=== PATIENT | male | born 1965 | race Caucasian/White ===

== ENCOUNTER 2019-11-09 13:13 | Emergency (ER) | payer OTHER, SELFPAY ==
--- NOTE | 2019-11-09 13:20 | ED.BACK ---
HPI - Back Pain/Injury General Chief Complaint: Back Pain/Injury Stated Complaint: lower back pain Time Seen by Provider: 11/09/19 13:43 Source: patient and RN notes reviewed Mode of arrival: ambulatory Limitations: no limitations History of Present Illness HPI Narrative: 54-year-old male presents with concern for right low back pain. Reports strenuous work prior to the back pain. Reports in the 90s he had 3 surgeries for disc removal and always has a low level of back pain. Denies any direct trauma or injury. Reports a spasming feeling. Reports using heating pad with some relief and taking ibuprofen. Denies any loss of bowel or bladder function, denies perianal anesthesia, denies fever, denies abdominal pain or weakness in any extremity. MD elicited complaint: back pain Related Data Allergies Allergy/AdvReac Type Severity Reaction Status Date / Time No Known Allergies Allergy Verified 11/09/19 13:28 Review of Systems Review of Systems: Narrative: CONSTITUTIONAL: Denies malaise, chills, sweats, or fever. CARDIOVASCULAR: Denies chest pain, palpitations, or edema. RESPIRATORY: Denies cough or dyspnea. GASTROINTESTINAL: Denies abdominal pain, nausea, vomiting, diarrhea GENITOURINARY: Denies dysuria or hematuria. SKIN: Denies bruising, redness MUSCULOSKELETAL: Reports right low back pain. Denies joint pain, or myalgia. NEUROLOGIC: Denies numbness, weakness, or headache. All systems reviewed & are unremarkable except as noted in HPI and below PMFSH Comments At time of signature, agree with nursing past medical, surgical, social and family history. There is no relevant family history pertinent to the presenting complaint Exam Narrative: Exam Narrative: GENERAL: Well-appearing, well-nourished, and in no acute distress. HEAD: Normocephalic, atraumatic. EYES: PERRLA and EOMI. NECK: Supple. No lymphadenopathy. CHEST: Clear to auscultation. No respiratory distress. HEART: Regular rate and rhythm. Distal pulses palpable and equal, cap refill <3 seconds ABDOMEN: Soft, nontender, nondistended, normal active bowel sounds, no palpable or pulsatile masses. No CVA tenderness MUSCULOSKELETAL: Normal range of motion and strength in all extremities; 5/5 strength with hip flexion and extension, dorsiflexion and extension, knee flexion and extension, plantar flexion and extension. Normal sensation in dermatomal distributions with sensitivity to light touch and pain. No midline back tenderness to palpation. No paraspinal tenderness. Transfers from lying to sitting to standing. SKIN: Warm, dry, no rash. No ecchymosis, erythema, open wounds to back. NEURO: No focal deficits. Alert and oriented x3. Reflexes intact. Normal gait. PSYCH: Normal mood and affect Course Course Emergency Course: Patient is aware of diagnosis, understands and agrees to treatment plan. Anticipatory guidance given. Patient agrees to follow-up as directed and is aware of reasons to seek care at the emergency department. Portions of this record may have been created with voice recognition software Vital Signs Vital signs: Vital Signs Temperature 98.1 F 11/09/19 13:25 Pulse Rate 68 11/09/19 13:25 Respiratory Rate 14 11/09/19 13:25 Blood Pressure 148/97 H 11/09/19 13:25 Pulse Oximetry 99 11/09/19 13:25 Temperature 98.1 F 11/09/19 13:25 Pulse Rate 68 11/09/19 13:25 Respiratory Rate 14 11/09/19 13:25 Blood Pressure 148/97 H 11/09/19 13:25 Pulse Oximetry 99 11/09/19 13:25 Reviewed. MDM - Back Pain/Injury MDM Narrative Medical decision making narrative: No risk factors or findings concerning for epidural abscess, diskitis, vertebral osteomyelitis, cord compression, cauda equina, vertebral fracture or bone malignancy, AAA, or pyelonephritis. Patient instructed to consider further imaging and workup through their primary care physician as an outpatient if symptoms persist. Critical Care Time Critical Care Time Critical Care Time: No
[2019-11-09 13:25] VITALS: BP 148/97; PULSE 68; RESP 14; TEMP 36.7; O2SAT 99
== END 2019-11-09 13:57 | disposition home or self-care (01) ==
PROVIDERS: Emergency Provider Nurse Practitioner
DX: M54.5 Low back pain (principal)
CPT/HCPCS: 99213; G0463

== ENCOUNTER 2020-01-05 11:53 | Emergency (ER) | payer OTHER, SELFPAY ==
[2020-01-05 12:14] VITALS: BP 144/82; PULSE 62; RESP 18; TEMP 36.6; O2SAT 99
--- NOTE | 2020-01-05 12:19 | ED.BACK ---
HPI - Back Pain/Injury General Chief Complaint: Back Pain/Injury Stated Complaint: back pain Time Seen by Provider: 01/05/20 12:19 Source: patient and RN notes reviewed History of Present Illness HPI Narrative: Patient is a 54-year-old male who presents the urgent care with complaints of back pain for the last 3 to 4 days. Patient states that he does have chronic back pain with a history of 3 surgeries. Patient states that he has been taking the typical ibuprofen without any relief. States that over the weekend that he was lifting heavy furniture and believes that is why it started on Friday. Patient denies of any urinary symptoms. Denies of any radiation of pain. No other acute complaints. No acute distress noted. Patient aware of the plan of care. Some parts of this dictation were generated by voice recognition software and may contain typographical and/or grammatical inaccuracies. Related Data Allergies Allergy/AdvReac Type Severity Reaction Status Date / Time No Known Allergies Allergy Verified 11/09/19 13:28 Review of Systems Review of Systems: Narrative: CONSTITUTIONAL: Denies fever, chills, or sweats. EYES: Denies visual changes, redness, or discharge. ENT: Denies rhinorrhea, congestion, sore throat, or otalgia. CARDIOVASCULAR: Denies chest pain, palpitations, or edema. RESPIRATORY: Denies cough or dyspnea. GASTROINTESTINAL: Denies abdominal pain, nausea, vomiting, or diarrhea. GENITOURINARY: Denies dysuria or hematuria. SKIN: Denies rash or itching. MUSCULOSKELETAL: Reports of bilateral lower back pain, worse on the right NEUROLOGIC: Denies headache, numbness, or weakness. PSYCHIATRIC: Denies anxiety or depression. All other systems reviewed are negative, except as documented in HPI. PMFSH Comments At the time of my signature, I reviewed and agree with the nursing past medical, surgical, social, and family history. There is no relevant family history pertinent to the patient complaint. Exam Narrative: Exam Narrative: GENERAL: This is a well-nourished, well-developed patient, in no apparent distress. HEAD: normocephalic, atraumatic. EYES: PERRL. Sclera clear/white. Vision is grossly intact. EARS: External ears normal NOSE: External nose normal with no obvious nasal discharge, nares without redness, no rhinorrhea. THROAT: Mucous membranes moist NECK: Neck supple SKIN: warm, intact with no suspicious lesions or rash, good texture and turgor. NEURO: awake, alert, and oriented to person, place and time. There were no obvious focal neurologic abnormalities. EXTREMITIES: No clubbing, cyanosis, or edema. No joint tenderness, effusion, or edema noted. No calf tenderness. Negative Homans sign bilaterally. BACK: Mild diffuse lumbar tenderness, more notable on the right without CVA tenderness; negative SLE Course Vital Signs Vital signs: Vital Signs Temperature 98 F 01/05/20 12:14 Pulse Rate 62 01/05/20 12:14 Respiratory Rate 18 01/05/20 12:14 Blood Pressure 144/82 H 01/05/20 12:14 Pulse Oximetry 99 01/05/20 12:14 Temperature 98 F 01/05/20 12:14 Pulse Rate 62 01/05/20 12:14 Respiratory Rate 18 01/05/20 12:14 Blood Pressure 144/82 H 01/05/20 12:14 Pulse Oximetry 99 01/05/20 12:14 Reviewed-patient is informed that they may have pre-hypertension or hypertension based on a blood pressure reading in the department. I recommend the patient call the primary care provider listed on their discharge instructions or a physician of their choice this week to arrange follow-up for further evaluation of possible pre-hypertension or hypertension. MDM - Back Pain/Injury MDM Narrative Medical decision making narrative: Advised the patient to complete steroid regimen as prescribed. Use ibuprofen as needed for pain. Make sure to eat and drink with the medication. Use Flexeril at bedtime for muscle spasms. Do not drive or operate heavy machinery while on the medication due to drowsiness. Continue to use ic
== END 2020-01-05 12:35 | disposition home or self-care (01) ==
PROVIDERS: Emergency Provider Nurse Practitioner Family
DX: M54.5 Low back pain (principal); G89.29 Other chronic pain
CPT/HCPCS: 99213; G0463

== ENCOUNTER 2020-11-14 10:48 | Emergency (ER) | payer OTHER, SELFPAY ==
[2020-11-14 10:56] VITALS: BP 116/79; PULSE 95; RESP 20; TEMP 37.1; O2SAT 100
--- NOTE | 2020-11-14 11:17 | ED.GENADULT ---
HPI - General Adult General Chief complaint: Abdominal Pain Stated complaint: Abdominal pain Time Seen by Provider: 11/14/20 11:17 Source: patient and family History of Present Illness HPI narrative: patient is here for a work note. patient missed work yesterday for one episode of diarrhea in the middle of the night. no abdominal pain no nausea no vomiting symptoms have resolved. Patient denies any other symptoms. Patient thinks his symptoms were from overeating over the weekend too much [employer] fast and fried foods Related Data Allergies Allergy/AdvReac Type Severity Reaction Status Date / Time No Known Allergies Allergy Verified 11/09/19 13:28 Review of Systems Review of Systems: CONSTITUTIONAL: Denies fever, chills, or sweats. EYES: Denies visual changes, redness, or discharge. ENT: Denies rhinorrhea, congestion, sore throat, or otalgia. CARDIOVASCULAR: Denies chest pain, palpitations, or edema. RESPIRATORY: Denies cough or dyspnea. GASTROINTESTINAL: Denies abdominal pain, nausea, vomiting, or diarrhea. GENITOURINARY: Denies dysuria or hematuria. SKIN: Denies rash or itching. MUSCULOSKELETAL: Denies back pain, joint pain, or myalgia. NEUROLOGIC: Denies headache, numbness, or weakness. PSYCHIATRIC: Denies anxiety or depression. [facility] Social History Social History Gender identity (if verbalized by the patient): Male Comments At time of signature, agree with nursing past medical, surgical, social and family history. There is no relevant family history pertinent to the presenting complaint Exam Narrative: GENERAL: Well-appearing, well-nourished, and in no acute distress. HEAD: Normocephalic, atraumatic. EYES: PERRLA and EOMI. ENT: Nares clear, no rhinorrhea or epistaxis. Mucous membranes moist. NECK: Supple. CHEST: Clear to auscultation. No respiratory distress. HEART: Regular rate and rhythm. No murmur heard. Normal peripheral pulses. ABDOMEN: Soft, nontender, nondistended, normal active bowel sounds. EXTREMITIES: Normal range of motion. No edema. SKIN: Warm, dry, no rash. NEURO: No focal deficits. Alert and oriented x3. Karla Coma Scale Eye Opening: Spontaneous 4 Karla Coma Scale Motor: Obeys Commands 6 [place] Coma Scale Verbal: Oriented 5 Karla Coma Scale Total 15 Course Vital Signs Vital signs: Vital Signs Temperature 37.1 C 11/14/20 10:56 Pulse Rate 95 11/14/20 10:56 Respiratory Rate 20 11/14/20 10:56 Blood Pressure 116/79 11/14/20 10:56 Pulse Oximetry 100 11/14/20 10:56 Temperature 37.1 C 11/14/20 10:56 Pulse Rate 95 11/14/20 10:56 Respiratory Rate 20 11/14/20 10:56 Blood Pressure 116/79 11/14/20 10:56 Pulse Oximetry 100 11/14/20 10:56 Critical dx considered and discussed with pt. Educated patient on red flag s/s and to go to ED if s/s occur. Discussed with pt when to return to [facility] or primary care provider. Pt gave verbal undertstanding, all questions were answered, and pt was agreeable to plan Regarding diagnosis, Regarding diagnostic results, Regarding treatment plan, Regarding prescription, Patient indicated understanding of instructions. Critical dx considered and discussed with pt. Educated patient on red flag s/s and to go to ED if s/s occur. Discussed with pt when to return to [facility] or primary care provider. Pt gave verbal undertstanding, all questions were answered, and pt was agreeable to plan.. Medical Decision Making Differential Diagnosis Differential Diagnosis: Work note, will visit, nausea, vomiting Vital Signs Vital Signs: Vital Signs Temperature 37.1 C 11/14/20 10:56 Pulse Rate 95 11/14/20 10:56 Respiratory Rate 11/14/20 10:56 Blood Pressure 116/79 11/14/20 10:56 Pulse Oximetry 100 11/14/20 10:56 Temperature 37.1 C 11/14/20 10:56 Pulse Rate 95 11/14/20 10:56 Respiratory Rate 20 11/14/20 10:56 Blood Pressure 116/79 11/14/20 10:56 Pulse Oximetry 100 11/14/20 10:56 C
== END 2020-11-14 11:31 | disposition home or self-care (01) ==
PROVIDERS: Emergency Provider Nurse Practitioner Family
DX: R10.9 Unspecified abdominal pain (principal)
CPT/HCPCS: 99211; G0463

== ENCOUNTER 2021-02-08 13:40 | Emergency (ER) | payer OTHER, SELFPAY ==
--- NOTE | 2021-02-08 13:45 | ED.ABDPAIN ---
HPI - Abdominal Pain General Chief Complaint: Abdominal Pain Stated Complaint: Abdominal Pain Time Seen by Provider: 02/08/21 13:45 Source: patient and RN notes reviewed History of Present Illness HPI narrative: Patient is a 56-year-old male who presents the urgent care with complaints of intermittent abdominal pains. Patient states that he left work on Friday due to abdominal pain and then did not go to work today due to the pain. Patient states he feels much better but does need a work excuse . Patient states he started to feel better after making a bowel movement this morning. Patient states it was a normal bowel movement and denies of any nausea, vomiting, diarrhea or abdominal pain. Denies of any fever. Patient denies any urinary symptoms. Patient believes that his pain is due to his crazy eating habits and late night eating . Patient states that he has long hours at work and tends to overeat prior to bedtime. Patient has not taken anything [id number] for his symptoms. No other acute complaints. No acute distress noted. Patient aware of the plan of care. Some parts of this dictation were generated by voice recognition software and may contain typographical and/or grammatical inaccuracies. Related Data Home Medications Medication Instructions Recorded Confirmed No Home Medications 02/08/21 02/08/21 Allergies Allergy/AdvReac Type Severity Reaction Status Date / Time No Known Allergies Allergy Verified 02/08/21 13:51 Review of Systems Review of Systems: CONSTITUTIONAL: Denies fever, chills, or sweats. EYES: Denies visual changes, redness, or discharge. ENT: Denies rhinorrhea, congestion, sore throat, or otalgia. CARDIOVASCULAR: Denies chest pain, palpitations, or edema. RESPIRATORY: Denies cough or dyspnea. GASTROINTESTINAL: Reports of intermittent abdominal pain without nausea, vomiting or diarrhea GENITOURINARY: Denies dysuria or hematuria. SKIN: Denies rash or itching. MUSCULOSKELETAL: Denies back pain, joint pain, or myalgia. NEUROLOGIC: Denies headache, numbness, or weakness. All other systems reviewed are negative, except as documented in HPI. [facility] Social History Social History Gender identity (if verbalized by the patient): Male Comments At the time of my signature, I reviewed and agree with the nursing past medical, surgical, social, and family history. There is no relevant family history pertinent to the patient complaint. Exam Narrative: GENERAL: This is a well-nourished, well-developed patient, in no apparent distress. HEAD: normocephalic, atraumatic. EYES: PERRL. Sclera clear/white. Vision is grossly intact. EARS: External ears normal NOSE: External nose normal with no obvious nasal discharge, nares without redness, no rhinorrhea. THROAT: Mucous membranes moist NECK: Neck supple CARDIOVASCULAR: Regular rate and rhythm without murmurs, gallops, or rubs. RESPIRATORY: Clear to auscultation. Breath sounds equal bilaterally. No wheezes, rales, or rhonchi. GASTROINTESTINAL: Abdomen soft, very mild diffuse lower abdominal tenderness, nondistended. Bowel sounds are active. No hepato-splenomegaly, or palpable masses. No guarding. SKIN: warm, intact with no suspicious lesions or rash, good texture and turgor. NEURO: awake, alert, and oriented to person, place and time. There were no obvious focal neurologic abnormalities. EXTREMITIES: No clubbing, cyanosis, or edema. BACK: Negative CVA tenderness Course Vital Signs Vital signs: Vital Signs Temperature 98.0 F 02/08/21 13:46 Pulse Rate 90 02/08/21 13:46 Respiratory Rate 16 02/08/21 13:46 Blood Pressure 156/93 H 02/08/21 13:46 Pulse Oximetry 100 02/08/21 13:46 Temperature 98.0 F 02/08/21 13:46 Pulse Rate 90 02/08/21 13:46 Respiratory Rate 16 02/08/21 13:46 Blood Pressure 156/93 H 02/08/21 13:46 Pulse Oximetry 100 02/08/21 13:46 Reviewed-patient is informed that they may have pre-hypertension or hype
[2021-02-08 13:46] VITALS: BP 156/93; PULSE 90; RESP 16; TEMP 36.7; O2SAT 100
== END 2021-02-08 14:23 | disposition home or self-care (01) ==
PROVIDERS: Emergency Provider Nurse Practitioner Family
DX: R10.30 Lower abdominal pain, unspecified (principal)
CPT/HCPCS: 99211; G0463

== ENCOUNTER 2021-02-16 09:46 | Emergency (ER) | payer OTHER, SELFPAY ==
[2021-02-16 11:01] VITALS: BP 125/88; PULSE 80; RESP 16; TEMP 37.2; O2SAT 99
--- NOTE | 2021-02-16 11:28 | ED.DENTAL ---
HPI - Dental/Oral General Chief complaint: Dental/Oral Stated complaint: tooth pain Time Seen by Provider: 02/16/21 11:22 Source: patient and RN notes reviewed Mode of arrival: ambulatory Limitations: no limitations History of Present Illness HPI Narrative: Patient presents today complaining of right upper tooth that has been loose for the past couple of weeks that is now been painful since yesterday. Currently rates his pain 10/10 and has been taking Tylenol without relief. Denies fever, shortness of breath, or difficulty swallowing. No recent antibiotic use. He and his called approximately 30 dentis yesterday to try to get an appointment. He does have a couple of appointments made in the next couple of weeks that he will try to get into be seen. MD Complaint: tooth pain Related Data Allergies Allergy/AdvReac Type Severity Reaction Status Date / Time No Known Allergies Allergy Verified 02/08/21 13:51 Review of Systems Review of Systems: CONSTITUTIONAL: Denies body aches, fever, chills, or sweats. EYES: Denies visual changes, redness, or discharge. ENT: Denies rhinorrhea, congestion, sore throat, or otalgia.+ Tooth pain CARDIOVASCULAR: Denies chest pain, palpitations, or edema. RESPIRATORY: Denies cough or dyspnea. GASTROINTESTINAL: Denies abdominal pain, nausea, vomiting, or diarrhea. GENITOURINARY: Denies dysuria or hematuria. SKIN: Denies rash, itching, or wounds. MUSCULOSKELETAL: Denies back pain, joint pain, or myalgia. NEUROLOGIC: Denies headache, numbness, tingling, or weakness. PSYCH: Denies depression or anxiety. PMFSH Social History Social History Gender identity (if verbalized by the patient): Male Comments At time of signature, I have reviewed and agree with nursing past medical, surgical, social and family history unless otherwise noted. Please see nursing chart for further information. There is no relevant family history pertinent to the presenting complaint Exam Narrative: GENERAL: Well-appearing, well-nourished, and in no acute distress. HEAD: Normocephalic, atraumatic. EYES: EOMI. No redness or drainage. Conjunctivae normal. ENT: Mucous membranes pink and moist. Throat normal. Uvula midline. Tooth #7 is brown in color and loose. The surrounding gingiva is erythematous and edematous. No obvious periapical abscess. NECK: Normal AROM. CHEST: No respiratory distress. EXTREMITIES: Normal range of motion. No edema. SKIN: Warm, dry, no rash. Capillary refill normal. Normal skin turgor. NEURO: No focal deficits. Alert and oriented x3. Gait steady. PSYCH: Normal affect. No signs of depression or anxiety. Course Vital Signs Vital signs: Vital Signs Temperature 99 F 02/16/21 11:01 Pulse Rate 80 02/16/21 11:01 Respiratory Rate 16 02/16/21 11:01 Blood Pressure 125/88 02/16/21 11:01 Pulse Oximetry 99 02/16/21 11:01 Temperature 99 F 02/16/21 11:01 Pulse Rate 80 02/16/21 11:01 Respiratory Rate 16 02/16/21 11:01 Blood Pressure 125/88 02/16/21 11:01 Pulse Oximetry 99 02/16/21 11:01 Reviewed. Pt has been instructed to follow up with his PCP regarding his elevated blood pressure today. MDM - Dental/Oral Differential Diagnosis Differential diagnosis: Likely gingival abscess, dental caries, toothache, dental abscess and fracture of tooth Critical Care Time Critical Care Time Critical Care Time: No Discharge Plan Discharge Clinical Impression: Dental abscess Patient Disposition: Home, Self-Care Condition: Stable Instructions: Antibiotic Form, Dental Abscess (ED) Additional Instructions: Please take the Augmentin as prescribed until gone. Tramadol for severe pain. Take Tylenol for mild pain. Follow-up with a dentist as soon as possible. Your blood pressure was elevated above 120/80 today at Urgent Care. This puts you above the threshold for follow up. Please schedule a follo
== END 2021-02-16 11:41 | disposition home or self-care (01) ==
PROVIDERS: Emergency Provider Nurse Practitioner
DX: K02.9 Dental caries, unspecified (principal)
CPT/HCPCS: 99213; G0463

== ENCOUNTER 2021-09-10 14:18 | Emergency (ER) | payer OTHER, SELFPAY ==
[2021-09-10 14:30] VITALS: BP 190/98; PULSE 60; RESP 20; TEMP 37.1; O2SAT 98
--- NOTE | 2021-09-10 15:00 | ED.GENADULT ---
HPI - General Adult General Chief complaint: Nausea/Vomiting/Diarrhea Stated complaint: weak and sick ([place]) Time Seen by Provider: 09/10/21 15:00 Source: patient and RN notes reviewed Mode of arrival: ambulatory Limitations: no limitations History of Present Illness HPI narrative: 56-year-old male presents with concern for general malaise, nausea and vomiting that started on Friday. Reports he got a sunburn on Friday. He reports he has vomited twice today, however he has since eaten a peanut butter jelly sandwich without vomiting. Reports he has been staying hydrated drinking Gatorade mixed with water. He denies fever. Reports body aches and rhinorrhea. He denies cough, shortness of breath, diarrhea. He denies [id number] intervention. He reports he needs to find a primary care doctor to address his hypertension. MD complaint: Nausea and vomiting Related Data Allergies Allergy/AdvReac Type Severity Reaction Status Date / Time No Known Allergies Allergy Verified 09/10/21 14:36 Review of Systems Review of Systems: CONSTITUTIONAL: Reports malaise, chills, fatigue Denies sweats, or fever. ENT: Reports rhinorrhea. Denies congestion, sinus pain, otalgia or sore throat. CARDIOVASCULAR: Denies chest pain, palpitations, or edema. RESPIRATORY: Denies cough or dyspnea. GASTROINTESTINAL: Denies abdominal pain, diarrhea, bloody, or mucous stools. Reports nausea and vomiting GENITOURINARY: Denies dysuria or hematuria. MUSCULOSKELETAL: Reports myalgia. NEUROLOGIC: Denies headache. All systems reviewed & are unremarkable except as noted in HPI and below [facility] Social History Social History Gender identity (if verbalized by the patient): Male Comments At time of signature, agree with nursing past medical, surgical, social and family history. There is no relevant family history pertinent to the presenting complaint Exam Narrative: GENERAL: Nontoxic-appearing and in no acute distress. HEAD: Normocephalic, atraumatic. EYES: PERRLA, conjunctivae clear, and EOMI. ENT: Nares clear. Mucous membranes moist. Oropharynx without edema, erythema, or lesions. Tonsils not enlarged and without exudate. NECK: Supple. No lymphadenopathy CHEST: Speaks in full sentences. No respiratory distress. HEART: Regular rate and rhythm. ABDOMEN: Soft, flat, nondistended. No guarding, rebound tenderness, or rigid. No pulsatilla masses. Bowel sounds present in all four quadrants. No organomegaly. Negative Ng?s sign. No periumbilical tenderness. No Supra public tenderness or distension. Good femoral pulses bilaterally. No hernia noted. No scars or surface trauma. SKIN: Warm, dry, no rash. NEURO: Alert and oriented x3. PSYCH: Normal mood and affect Course Course Emergency Course: Patient is aware of diagnosis, understands and agrees to treatment plan. Anticipatory guidance given. Patient agrees to follow-up as directed and is aware of reasons to seek care at the emergency department. Portions of this record may have been created with voice recognition software Level of Care: Express Care Visit Vital Signs Vital signs: Vital Signs Temperature 98.7 F 09/10/21 14:30 Pulse Rate 60 09/10/21 14:30 Respiratory Rate 20 09/10/21 14:30 Blood Pressure 190/98 H 09/10/21 14:30 Pulse Oximetry 98 09/10/21 14:30 Oxygen Delivery Room Air 09/10/21 14:30 Temperature 98.7 F 09/10/21 14:30 Pulse Rate 60 09/10/21 14:30 Respiratory Rate 20 09/10/21 14:30 Blood Pressure 190/98 H 09/10/21 14:30 Pulse Oximetry 98 09/10/21 14:30 Oxygen Delivery Room Air 09/10/21 14:30 Reviewed. Medical Decision Making MDM Narrative Medical decision making narrative: Exam findings show no acute concerns or changes; patient is non-toxic appearing and is in no distress. Patient is appropriate for outpatient treatment and follow-up. Vital Signs Vital Signs: Vital Sign
== END 2021-09-10 15:18 | disposition home or self-care (01) ==
PROVIDERS: Emergency Provider Nurse Practitioner
DX: B34.9 Viral infection, unspecified (principal)
CPT/HCPCS: 99213; G0463

== ENCOUNTER 2024-07-14 14:53 | Emergency (ER) | payer OTHER, SELFPAY ==
[2024-07-14 15:03] VITALS: BP 120/76; PULSE 75; RESP 16; TEMP 36.8; O2SAT 98
--- NOTE | 2024-07-14 15:42 | ED.EAR ---
HPI - Ear Problem General Chief complaint: Ear Stated complaint: Lft earache Time Seen by Provider: 07/14/24 15:32 Source: patient Mode of arrival: ambulatory Limitations: no limitations History of Present Illness HPI Narrative: Patient presents to the clinic for left ear pain since Friday. He has been using [id number] ear drops, but has not been using anything for pain. Patient states that he had COVID back in February and has not been able to hear out the left ear since. He currently does have any congestion at this time. Related Data Allergies Allergy/AdvReac Type Severity Reaction Status Date / Time No Known Allergies Allergy Verified 07/14/24 15:16 Review of Systems Review of Systems: CONSTITUTIONAL: Denies malaise, chills, ?or fever. EYES: Denies visual changes, redness, or discharge. ENT: Denies rhinorrhea, congestion, sinus pain, and sore throat. ?Reports left ear pain. CARDIOVASCULAR: Denies chest pain, palpitations, or edema. RESPIRATORY: Denies cough or dyspnea. GASTROINTESTINAL: Denies abdominal pain, nausea, vomiting, diarrhea SKIN: Denies rash or itching. MUSCULOSKELETAL: Denies myalgia. NEUROLOGIC: Denies headache. All systems reviewed & are unremarkable except as noted in HPI and below PMFSH Social History Social History (Updated 07/14/24 @ 16:36 by Marivel Lama, CRYPTOGRAPHIC CENTER SPECIALIST) Years smoked: 45 Smoking status: Current every day smoker Tobacco type: cigarettes Gender identity (if verbalized by the patient): Male Comments At time of signature, I have reviewed and agree with nursing past medical, surgical, social and family history unless otherwise noted. Please see nursing chart for further information. There is no relevant family history pertinent to the presenting complaint. Exam Narrative: GENERAL: Well-appearing, well-nourished, and in no acute distress. HEAD: Normocephalic EYES: PERRLA, conjunctivae clear ENT: Nares clear. Mucous membranes moist. ?Left TM erythematous, bulging and intact; canal is erythematous and edematous. No drainage or tragal tenderness. Oropharynx not erythematous without lesions. ?no drooling, no hoarseness, no trismus, uvula midline. NECK: Supple. No lymphadenopathy CHEST: Clear to auscultation, breath sounds equal. No wheezing, rhonchi, rales, or stridor. No respiratory distress, speaks in full sentences. HEART: Regular rate and rhythm. No murmur heard. SKIN: Warm, dry, no rash. NEURO: Alert and oriented x3. PSYCH: Normal mood and affect. Course Course Level of Care: Express Care Visit Vital Signs Vital signs: Vital Signs Temperature 98.3 F 07/14/24 15:03 Pulse Rate 75 07/14/24 15:03 Respiratory Rate 16 07/14/24 15:03 Blood Pressure 120/76 07/14/24 15:03 Pulse Oximetry 98 07/14/24 15:03 Oxygen Delivery Room Air 07/14/24 15:03 Temperature 98.3 F 07/14/24 15:03 Pulse Rate 75 07/14/24 15:03 Respiratory Rate 16 07/14/24 15:03 Blood Pressure 120/76 07/14/24 15:03 Pulse Oximetry 98 07/14/24 15:03 Oxygen Delivery Room Air 07/14/24 15:03 Reviewed Medical Decision Making MDM Narrative Medical decision making narrative: Discussed physical exam findings. Talked with patient about taking antibiotics as prescribed both orally and drops in ear. Advised supportive measures and signs/symptoms to go to the ER. Pt is appropriate for outpatient treatment and follow up. Differential Diagnosis Differential Diagnosis: otitis externa, TM rupture, cholesteatoma, foreign body, auricular perichondritis otitis media, bullous myringitis, mastoiditis, eustachian tube dysfunction Vital Signs Vital Signs: Vital Signs Temperature 98.3 F 07/14/24 15:03 Pulse Rate 75 07/14/24 15:03 Respiratory Rate 16 07/14/24 15:03 Blood Pressure 120/76 07/14/24 15:03 Pulse Oximetry 98 07/14/24 15:03 Oxygen Delivery Room Air 07/14/24 15:03 Temperature 98.3 F 07/14/24 15:03 Pulse Rate 75 07/14/24 15:03 Respiratory Rate 16 07/14/24 15:03 Blood Pressure 120/76 07/14/24 15:03 Pulse Oximetry 98 07/14/24 15:03 Oxygen Delivery Room Air 07/14/24 15:03 Critical Care Time Critical Care Time Critical Care Time: No Discharge Plan Discharge Clinical Impression: Otitis media, Otitis externa Patient Disposition: Home Condition: Stable Instructions: Ear Infection (ED) Additional Instructions: Outer ear infection is an infection in the outer ear canal, which runs from your eardrum to the outside of your head. It's often caused by water that remains in your ear, creating a moist environment that encourages the growth of bacteria. Take antibiotic drops and by mouth as directed. Tylenol and ibuprofen every 8 hours as needed to reduce fever, pain Avoid water or anything into the ear for one week Symptomatic treatment includes: rest, fluids, and increase humidity of the air at home. Please establish a follow-up visit with your personal physician for further evaluation and treatment within 3-5days. If your symptoms persist, change or worsen significantly, go to the emergency department for further evaluation. Patient Language: French Prescriptions: New amoxicillin-pot clavulanate 875-125 mg tablet 1 tablet PO Q12H 7 Days Qty: 14 0RF ciprofloxacin-dexamethasone 0.3-0.1 % drops,suspension 4 drp LEFT EAR Q12H 7 Days Qty: 7.5 0RF Follow-up/Referrals: UNKNOWN,DOCTOR [Primary Care Provider] -
--- OUTSIDE RECORDS SUMMARY | 2024-07-14 16:11 | XMS_ITS | Clinical Summary ---
Author Organization [facility] Address [address] [place] [address] Care Team Providers Care Water Jet Loom Fixer Name Role Phone Yvonne Cristobal Primary Care Prov ider Allergies No known active allergies Medications lisinopriL (PRINIVIL,ZESTRI L) 10 mg tablet Take 1 tablet (10 mg total) by mouth daily 30 tablet 09/12/2021 Active Active Problems Problem Noted Date Diagnosed Date COVID-19 virus infection 10/06/2023 COPD (chronic obstructive pulmonary disease) 10/2023 Tobacco use 10/06/2023 Sprain of left knee 11/10/2017 Surgical History Surgery Date Site/Laterality Comments BACK SURGERY Medical History Medical History Date Comments Hypertension Tobacco dependence Anxiety Social History Tobacco Use Types Packs/Day Years Used Date Smoking Tobacco: Every Day Smokeless Tobacco: Never Tobacco Cessation:Ready to Q uit: No; Counseling Given: No Alcohol Use Standard Drinks/Week Comments Defer 0 (1 standard drink = 0.6 oz pur e alcohol) Personal Safety Answer Date Recorded Have you ever been in or are you currently in a harmful physical or emotional relationship or is someone making you feel afraid or unsafe? 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 Gender Identity Not on file Sexual Orientation Not on file Obstetrics History Last Filed Vital Signs Vital Sign Reading Time Taken Comments Blood Pressure 159/87 10/07/2023 3:00 PM CDT Pulse 53 10/07/2023 3:00 PM CDT Temperature 36.7 C (98.1 F) 10/07/2023 3:00 PM CDT Respiratory Rate 18 10/07/2023 3:00 PM CDT Oxygen Saturation 97% 10/07/2023 3:00 PM CDT Inhaled Oxygen Concentration - - Weight 71.2 kg (157 lb) 10/06/2023 4:36 PM CDT Height 180.3 cm (5' 11 ) 10/06/2023 4:36 PM CDT Body Mass Index 21.9 10/06/2023 4:36 PM CDT Plan of Treatment Health Maintenance Due Date Last Done Comments Colon Cancer Screening-Colonoscopy 1967 Depression Screening 1967 Hepatitis C Screening 1967 Prostate Cancer Screening-PSA 1967 DTaP/Tdap/Td Vaccine (1 - Tdap) 1978 Hepatitis B Screening 1985 Regular Well Visit/Exam 18-64 1985 Pneumococcal vaccine <65 (1 of 2 - PCV) 1986 Zoster Vaccine (1 of 2) 2017 Influenza Vaccine (#1) 2023 Insurance [employer] ACCESS [facility] [employer] OPEN ACCESS [facility] Advance Directives For more information, please contact: [phone] * Full Code (Latest Code Status on File) Date Activated Date Inactivated Comments 10/06/2023 2:10 PM 10/07/2023 9:33 PM Care Teams Water Jet Loom Fixer Relationship Specialty Start Date End Date Yvonne Cristobal PA PCP - General Neurosurgery 10/06/23
--- OUTSIDE RECORDS SUMMARY | 2024-07-14 16:11 | XMS_ITS | Clinical Summary ---
Author Organization [facility] Address [address] [place] [address] Phone Care Team Providers Care Special Technical Operations Officer Name Role Phone Provider, None Primary Care Provider Unavailabl e Allergies No known active allergies Medications HYDROcodone-melany taminophen (NORCO) 5-325 MG Tablet Take 1 Tab by mouth every 6 hours as needed for Pain. 20 Tab 06/14/2017 Active ibuprofen (MOTRIN) 600 MG Tablet Take 1 Tab by mouth every 8 hours as needed for Moderate or more severe pain. 60 Tab 03/03/2019 Active Social History Tobacco Use Types Packs/Day Years Used Date Smoking Tobacco: Every Day Smokeless Tobacco: Never Alcohol Use Standard Drinks/Week Comments No 0 (1 standard drink = 0.6 oz pur e alcohol) Sex and Gender Information Value Date Recorded Sex Assigned at Not on file Legal Sex Male 7:35 PM CDT Gender Identity Not on file Sexual Orientation Not on file Last Filed Vital Signs Vital Sign Reading Time Taken Comments Blood Pressure 129/80 03/03/2019 10:26 AM HYDRAULIC DESIGN ENGINEER Pulse 52 03/03/2019 10:26 AM HYDRAULIC DESIGN ENGINEER Temperature 36.2 C (97.2 F) 03/03/2019 9:19 AM HYDRAULIC DESIGN ENGINEER Respiratory Rate 18 03/03/2019 10:26 AM HYDRAULIC DESIGN ENGINEER Oxygen Saturation 96% 03/03/2019 10:26 AM HYDRAULIC DESIGN ENGINEER Inhaled Oxygen Concentration - - Weight 81.6 kg (180 lb) 03/03/2019 9:11 AM HYDRAULIC DESIGN ENGINEER Height 180.3 cm (5' 11 ) 03/03/2019 9:11 AM HYDRAULIC DESIGN ENGINEER Body Mass Index 25.1 03/03/2019 9:11 AM HYDRAULIC DESIGN ENGINEER Plan of Treatment Health Maintenance Due Date Last Done Comments Hepatitis C Virus (HCV) Screening 1967 TdaP Immunization 1967 Hepatitis B Immunization (1 of 3 - 19+ 3-dose series) 1986 Colonoscopy 01/10/2012 Colorectal Cancer Screening 01/10/2012 Cologuard 2017 Immunochemical Fecal Occult Blood 2017 Pneumococcal Immunization (5 0+ years) (1 of 1 - PCV) 2017 Zoster Immunization (1 of 2) 2017 PSA Discussion 2022 Influenza Immunization (#1) 2023 SARS-COV-2 Immunization (1 - 2023-25 season) 2023 Respiratory Syncytial Virus (RSV) Immunization (Adult) (1 - 1-dose 75+ series) 2042 Meningococcal Immunization (ACWY) Aged Out No longer eligible based on patient's age to complete this topic Rotavirus Immunization Aged Out No lo nger eligible based on patient's age to complete this topic Insurance [place] Care Teams Special Technical Operations Officer Relationship Specialty Start Date End Date Provider, None [place] PCP - General 02/26/18
--- OUTSIDE RECORDS SUMMARY | 2024-07-14 16:11 | XMS_ITS | Referral Summary ---
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 CIGNA OPEN [facility] Advance Directives For more information, please contact: [phone] * Full Code (Latest Code Status on File) Date Activated Date Inactivated Comments 10/06/2023 2:10 PM 10/07/2023 9:33 PM Care Teams Emt/Dispatcher Relationship Specialty Start Date End Date Yvonne Cristobal PA PCP - General Neurosurgery 10/06/23
== END 2024-07-14 15:52 | disposition home or self-care (01) ==
DX: H66.90 Otitis media, unspecified, unspecified ear (principal); H60.90 Unspecified otitis externa, unspecified ear; F17.210 Nicotine dependence, cigarettes, uncomplicated
CPT/HCPCS: 99213; G0463